=== PATIENT | male | born 1955 | race Caucasian/White ===

== ENCOUNTER 2016-12-01 08:57 | Observation (INO) | payer OTHER ==
--- NOTE | ~2016-12-01 | TH ---
Unit #: [id number] #: [id number] Patient: JAYME GUZMAN [id number] [address] [address] [id number] I MR#: [id number] NAME: JAYME GUZMAN : 1955 SEX: M STUDY DATE/TIME: 12/02/2016 UNIT: B ROOM: 551 STUDY DESCRIPTION: Attending Physician: Estela Kim M.D. Primary Care Physician: No Primary Care Physician CARDIOLOGY REPORT EXAM Exercise Cardiolite stress test, nuclear portion. PROCEDURE Using technetium 99m labeled Cardiolite, rest and stress SPECT images were obtained. Multiple SPECT images were obtained in various views including horizontal and vertical long axis and short axis views of the left ventricle. Images were obtained by gated SPECT method. The patient was administered 11.03 mCi of Cardiolite at rest. The patient was administered 35.1 mCi of Cardiolite at peak exercise. Total exercise time is 9 minutes and 31 seconds. On the stress images, there is a very small area of mild decreased isotope activity in the anteroseptal wall. The rest images also show a small area of mild decreased isotope activity anteroseptally. Comparing rest and stress images, there is no stress-induced ischemia noted. The small area of predominantly fixed defect seen anteroseptally is most likely due to soft tissue artifact. The left ventricular ejection fraction is calculated to be 57%. There is no focal wall motion abnormality seen. CONCLUSION 1. No stress-induced ischemia noted. 2. There is a small area of predominantly fixed defect seen anteroseptally of unclear significance. 3. The left ventricular ejection fraction is calculated to be 57%. 4. There is no focal wall motion abnormality seen. 5. Normal exercise Cardiolite stress test. Dictated by... Lois Palacios TD: 12/02/2016 12:14 JOB #: [id number] Unit #: [id number] #: [id number] Patient: JAYME GUZMAN CARDIOLOGY REPORT Page 1 of 1 X Estela Kim MD <ELECTRONICALLY SIGNED> 12/24/16 1524 CARDIOLOGY REPORT
--- NOTE | ~2016-12-01 | EKG ---
PATIENT: JAYME GUZMAN UNIT #: [id number] Ventricular Rate: 96 BPM Atrial Rate: 96 BPM P-R Interval: 146 ms QRS Duration: 78 ms Q-T Interval: 338 ms QTC Calculation(Bezet): 427 ms P [place]: 44 degrees Calculated R [place]: -33 degrees Calculated T [place]: 5 degrees Diagnosis Line: Normal sinus rhythm Diagnosis Line: Left axis deviation Diagnosis Line: Abnormal ECG Diagnosis Line: No previous ECGs available Diagnosis Line: Confirmed by JO ISAAC MD ([id number]) on Diagnosis Line: 12/02/2016 11:10:32 PM INTERPRETING MD: PAL
--- NOTE | ~2016-12-01 | CR72 ---
[facility] A Service [facility] RADIOLOGY TEXT RESULTS PATIENT: JAYME GUZMAN LOCATION: [place] [address] : [birth year] UNIT #: [id number] AGE: [address]: Estela Kim MD SEX: M ORDER DR: [id number] [place] [id number] E MR#: [id number] Acc #: [id number] NAME: JAYME GUZMAN : 1955 SEX: M STUDY DATE/TIME: 12/01/2016 09:46 UNIT: SED ROOM: STUDY DESCRIPTION: CR Chest Single View Portable Attending Physician: Jossy Conteh M.D. Ordering Physician: Jossy Conteh M.D. Primary Care Physician: No Primary Care Physician MEDICAL IMAGING REPORT This report is preliminary unless electronic signature is present. EXAM Chest portable 12/01/2016 09:46 hours HISTORY A 61-year-old man with history of hypertension complaining of anterior chest pain today. COMPARISON None. FINDINGS Portable upright chest demonstrates normal heart size. The aorta is mildly tortuous. The lungs are clear of acute densities. Calcified granulomata are present. There is no effusion. IMPRESSION 1. Heart size within normal limits with minimally tortuous aorta. 2. Benign calcified granulomatous changes in the lungs. No acute pulmonary or pleural findings. Dictated by... Nohemi De Leon M.D. THIS IS AN ELECTRONICALLY VERIFIED REPORT Nohemi De Leon M.D. at 12/01/2016 2:28 PM YVAN/ted TD: 12/01/2016 12:02 JOB #: [id number] [facility] A Service [facility] RADIOLOGY TEXT RESULTS PATIENT: JAYME GUZMAN LOCATION: [facility] [id number] : 53 UNIT #: [id number] AGE: [address]: Estela Kim MD SEX: M ORDER DR: MEDICAL IMAGING REPORT Page 1 of 1
--- NOTE | ~2016-12-01 | A ---
[facility] Nutrition Therapy DATE: 12/02/16 Patient: JAYME GUZMAN Physician: PRASHANT Address: [address] Room/Bed: [address] [place] [address], Zip: [place] [address] Admit Date: 12/01/16 Date of : 53 Height: Weight: 194 88.1 NUTRITIONAL ASSESSMENT: REASON: CONSULT RE: DIET EDUCATION PT IS 61 Y.O. MALE ADMITTED FOR CHEST PAIN PM[facility] PER CHART: DM, HTN, HLD, TOBACCO ABUSE Anthropometrics: 5'11", WT: 194# (88 KG), BMI: 27.1 Labs: GLU: 141 Meds: LIPITOR I/O & Bowel function: 1020/350 Skin Integrity: NO KNOWN SKIN ISSUES Assessment: CHART REVIEWED AND EVENTS NOTED. PT SEEN FOR DIET EDUCATION CONSULT. RD PROVIDED WRITTEN AND VERBAL CC+HH DIET EDUCATION. RD EMPHASIZED IMPORTANCE OF MAINTAINING A CONSISTENT MEAL SCHEDULE + LIMITING SALT INTAKE AND READING FOOD LABELS. RD PROVIDED LIST OF FOODS TO AVOID AND FOODS TO EAT MORE OFTEN. PT REPORTS CONSUMING 2 MEALS DAILY, WILLING TO ADD ANOTHER MEAL WELL CONSUME HEALTHIER BREAKFAST. PT AND DEMONSTRATED UNDERSTANDING OF THE TOPIC. RD ANSWERED QUESTIONS APPROPRIATELY. RD TO REMAIN AVAILABLE UPON REQUEST. Intervention: 1. CC+ HH DIET 2. DIET EDUCATION Recommendations: 1. ENCOURAGE COMPLIANCE OF CURRENT DIET ORDER 2. RE-CONSULT RD IF FURTHER DIET EDUCATION REQUESTED 3. CONSIDER OBTAINING HgB A1c TO BETTER ASSESS DM MANAGEMENT RD WILL F/U PER PROTOCOL Respectfully, Olga Lidia Martinez RD, LD Food [facility] Nutrition[facility] Nutrition Therapy DATE: 12/02/16 Patient: JAYME THOMAS Physician: PRASHANT Address: [address] Room/Bed: [address] [place] [address], Zip: [place] [id number] Admit Date: 12/01/16 Date of : 53 Height: Weight: 194 88.1 [facility] cc: client file
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
--- NOTE | ~2016-12-01 | EKG ---
PATIENT: JAYME GUZMAN UNIT #: [id number] Ventricular Rate: 52 BPM Atrial Rate: 52 BPM P-R Interval: 166 ms QRS Duration: 80 ms Q-T Interval: 416 ms QTC Calculation(Bezet): 386 ms P Muir: 40 degrees Calculated R Muir: -22 degrees Calculated T Muir: 22 degrees Diagnosis Line: Sinus bradycardia Diagnosis Line: Low voltage QRS Diagnosis Line: Borderline ECG Diagnosis Line: No previous ECGs available Diagnosis Line: Confirmed by BINH CARLOS MD ([id number]) on 12/02/2016 Diagnosis Line: 7:20:25 PM INTERPRETING MD: TERRANCE MIGUEL
--- NOTE | ~2016-12-01 | ST ---
Unit #: [id number] #: [id number] Patient: JAYME GUZMAN [id number] [facility]. [address] [place], [place] [address] [id number] I MR#: [id number] NAME: JAYME GUZMAN : 1955 SEX: M STUDY DATE/TIME: 12/02/2016 UNIT: C5B ROOM: 551 STUDY DESCRIPTION: Cadriac stress test. Attending Physician: Estela Kim M.D. Primary Care Physician: No Primary Care Physician CARDIOLOGY REPORT EXAM Cardiac stress test. INDICATION FOR STUDY Chest pain. PROCEDURE Baseline EKG shows sinus bradycardia, rate of 54 beats per minute, low voltage, with poor R wave progression. The patient exercised on the treadmill according to Cristopher protocol for a total of 9 minute 31 seconds, achieving 10.90 METS, with a resting heart rate of 51 beats per minute and a maximum heart rate of 139 beats per minute. This represents 87% of the maximum predicted heart rate. There appears to be some mild ST segment depression in the inferolateral leads, approximately 0.5-1 mm. The patient did complain of some chest pressure anterior, which was similar in nature to the pressure that brought him to the emergency room from home. This was at peak exertion. He also complained of shortness of breath which increased at peak exertion. There was no ectopy. The test was stopped secondary to increasing shortness of breath, dyspnea on exertion and mild anterior chest pressure. 1. EKG with 0.5-[address] segment depression inferolateral leads. 2. During the test the patient did complain of anterior chest pressure at peak exertion, as well as shortness of breath which increased at maximum intensity and fatigue. His symptoms resolved in recovery period. 3. There were no sustained arrhythmias or isolated arrhythmias. 4. The patient had a normal blood pressure response to exercise. 5. Please correlate with nuclear images. Dictated by... Sugey Macedo A.P.R.N. for Unit #: [id number] #: [id number] Patient: JAYME GUZMAN Estela Kim M.D. LMW/gz TD: 12/02/2016 10:47 JOB #: [id number] CARDIOLOGY REPORT Page 1 of 1 X Sugey Macedo APRN CARDIOLOGY REPORT
--- NOTE | ~2016-12-01 | EKG ---
PATIENT: JAYME GUZMAN UNIT #: [id number] Ventricular Rate: 55 BPM Atrial Rate: 55 BPM P-R Interval: 152 ms QRS Duration: 80 ms Q-T Interval: 380 ms QTC Calculation(Bezet): 363 ms P [place]ac: 21 degrees Calculated R Capac: 30 degrees Calculated T Capac: 4 degrees Diagnosis Line: Sinus bradycardia Diagnosis Line: Otherwise normal ECG Diagnosis Line: When compared with ECG of 02-DEC-2016 05:31, Diagnosis Line: (unconfirmed) Diagnosis Line: No significant change was found Diagnosis Line: Confirmed by BINH CARLOS MD ([id number]) on 12/02/2016 Diagnosis Line: 7:27:21 PM INTERPRETING MD: TERRANCE MIGUEL
--- NOTE | ~2016-12-01 | CT16 ---
[facility] A Service of [facility] RADIOLOGY TEXT RESULTS PATIENT: JAYME GUZMAN LOCATION: [facility] 551- : 53 UNIT #: [id number] AGE: [address]: Estela Kim MD SEX: M ORDER DR: [id number] [address] [address] [id number] I MR#: [id number] Acc #: [id number] NAME: JAYME GUZMAN : 1955 SEX: M STUDY DATE/TIME: 12/01/2016 12:19 UNIT: SEDOF ROOM: [id number] STUDY DESCRIPTION: CT Angio Chest for PE Attending Physician: Estela Kim M.D. Ordering Physician: Jossy Conteh M.D. Primary Care Physician: No Primary Care Physician MEDICAL IMAGING REPORT This report is preliminary unless electronic signature is present. EXAM CT angiogram of the chest for pulmonary embolism 12/01/2016 1219 hours HISTORY 61-year-old man complaining of intermittent chest pain for 2 months with new onset chest pain today at 0820 hours. History of chewing tobacco usage, hypertension, diabetes. COMPARISON Chest film 12/01/2016. No prior CT scan TECHNIQUE Dynamic helical CT angiographic images were obtained from the thoracic inlet through the adrenal glands. 3-D sagittal and coronal reconstructions were performed. Contrast was Isovue-370 80 mL IV. Total exam DLP 681 mGy-cm. This CT exam was performed with one or more of the following radiation dose reduction techniques: automatic control, adjustment of mA and/or kV according to patient size, and iterative reconstruction. FINDINGS Images through the thoracic inlet demonstrate no thyroid mass or supraclavicular adenopathy. Images through the chest demonstrate diagnostic quality opacification of the pulmonary arteries which are normal in caliber. There are no filling defects to suggest the presence of pulmonary emboli. The aorta is also moderately well opacified and normal in caliber. There is no dissection. Cardiac chambers, pericardium and esophagus appear normal. The lungs are well expanded. There is some linear density dependently at both bases consistent with atelectasis or scar. There is no evidence of pneumonia, edema or mass. There are no effusions. [facility]. [facility] A Service of [facility] & [facility] RADIOLOGY TEXT RESULTS PATIENT: JAYME GUZMAN LOCATION: C5B 551-01 : 53 UNIT #: [id number] AGE: [address]: Estela Kim MD SEX: M ORDER DR: Limited views through the upper abdomen are negative. IMPRESSION 1. No evidence of pulmonary embolism. The aorta is normal. 2. Mild emphysematous changes with linear bibasilar densities consistent with atelectasis or scar. There is no pleural effusion or pneumothorax. Dictated by... Nohemi De Leon M.D. THIS IS AN ELECTRONICALLY VERIFIED REPORT Nohemi De Leon M.D. at 12/01/2016 5:27 PM YVAN/yancy TD: 12/01/2016 16:17 JOB #: [id number] MEDICAL IMAGING REPORT Page 1 of 1
[2016-12-01] MEDS ORDERED: JANUMET 50/500 PO (09:09)
[2016-12-01] MEDS ORDERED: ASPIRIN PO (09:10)
[2016-12-01] MEDS ORDERED: CRESTOR PO (09:10)
[2016-12-01] MEDS ORDERED: FELODIPINE PO (09:10)
[2016-12-01] MEDS ORDERED: LISINOPRIL PO (09:10)
[2016-12-01 09:34] LABS: POC - CKMB 1.2 ng/mL (0.0-7.9); POC - MYOGLOBIN 44.1 ng/mL (0.0-169.0)
[2016-12-01 09:35] LABS: POC - TROPONIN <0.05 ng/mL (<=0.05)
[2016-12-01 09:49] LABS: BASOPHIL# 0.1 X10e3 (0-0.3); BASOPHIL% 0.9 % (0-2.5); EOSINOPHIL# 0.5 X10e3 (0-0.7); EOSINOPHIL% 5.2 % (0.0-7.0); HEMATOCRIT 47.8 % (38.0-50.0); HEMOGLOBIN 16.2 gm/dL (13.0-16.0); LYMPHOCYTE# 1.3 X10e3 (1.0-3.5); LYMPHOCYTE% 13.8 % (17.0-45.0); MEAN CELL VOLUME 84.8 FL (83-96); MEAN CORPUSCULAR HEMOGLOBIN 28.7 PG (28-34); MEAN CORPUSCULAR HGB CONC 33.9 g/dL (30-36); MEAN PLATELET VOLUME 9.2 FL (6.5-11.5); MONOCYTE# 0.8 X10e3 (0-1.0); MONOCYTE% 8.9 % (3.0-12.0); NEUTROPHIL# 6.7 X10e3 (1.5-7.1); NEUTROPHIL% 71.2 % (40-75); PLATELET COUNT 227 X10e3 (140-420); RED BLOOD COUNT 5.64 X10e (3.90-5.60); WHITE BLOOD COUNT 9.4 X10e3 (4.0-10.5)
[2016-12-01 09:54] LABS: DIFF IND NO
[2016-12-01 10:02] LABS: PROTHROMBIN TIME (PATIENT) 11.8 SECONDS (9.5-12.4)
[2016-12-01 10:09] LABS: ALBUMIN SERUM 4.5 g/dL (3.5-5.0); BILIRUBIN, DIRECT 0.1 mg/dL (0.0-0.2); BILIRUBIN,INDIRECT 0.9 mg/dL (0.0-0.9); BUN/CREATININE RATIO 16.66; CALCIUM SERUM 8.8 mg/dL (8.4-10.2); CREATININE SERUM 1.2 mg/dL (0.6-1.4); GLOM FILT RATE Estimated 64.4 mL/min (>60); POTASSIUM 3.8 mmol/L (3.5-5.1); PROTEIN TOTAL SERUM 7.4 g/dL (6.0-8.3)
[2016-12-01 10:10] LABS: PARTIAL THROMBOPLASTIN TIME 28.5 SECONDS (25.6-38.1)
[2016-12-01 11:18] LABS: POC - CKMB <1.0 ng/mL (0.0-7.9); POC - MYOGLOBIN 38.7 ng/mL (0.0-169.0); POC - TROPONIN <0.05 ng/mL (<=0.05)
[2016-12-02 06:26] LABS: BUN/CREATININE RATIO 16.36; CALCIUM SERUM 9.3 mg/dL (8.4-10.2); CREATININE SERUM 1.1 mg/dL (0.6-1.4); GLOM FILT RATE Estimated 71.6 mL/min (>60); MAGNESIUM 1.9 mg/dL (1.6-3.0); POTASSIUM 4.3 mmol/L (3.5-5.1)
[2016-12-02 12:48] LABS: HEMATOCRIT 46.9 % (38.0-50.0); HEMOGLOBIN 15.8 gm/dL (13.0-16.0); MEAN CELL VOLUME 84.2 FL (83-96); MEAN CORPUSCULAR HEMOGLOBIN 28.4 PG (28-34); MEAN CORPUSCULAR HGB CONC 33.7 g/dL (30-36); MEAN PLATELET VOLUME 8.3 FL (6.5-11.5); RED BLOOD COUNT 5.57 X10e (3.90-5.60); RED CELL DISTRIBUTION WIDTH 13.4 % (11.0-15.5); WHITE BLOOD COUNT 8.8 X10e3 (4.0-10.5)
[2016-12-02 13:01] LABS: INR 1.1; PROTHROMBIN TIME (PATIENT) 11.4 SECONDS (10.0-11.7)
[2016-12-02 14:22] LABS: BUN/CREATININE RATIO 13.84; CALCIUM SERUM 9.5 mg/dL (8.4-10.2); CREATININE SERUM 1.3 mg/dL (0.6-1.4); GLOM FILT RATE Estimated 58.5 mL/min (>60)
[2016-12-02] MEDS ORDERED: METOPROLOL TAR25 MG PO (20:51)
[2016-12-02] MEDS ORDERED: CRESTOR10 MG PO (20:52)
== END 2016-12-02 21:27 | DRG 313 ==
LOC: SED 08:57 → C5B 15:54 → SED 15:54 → SEDOF 15:54 → C5B 16:58 → SEDOF 16:58 → C5B 17:14 → SEDOF 17:14 → C5B 12-02 21:27
PROVIDERS: Emergency Medicine; Internal Medicine Cardiovascular Disease
DX: R07.89 Other chest pain (principal); E11.9 Type 2 diabetes mellitus without complications; I10 Essential (primary) hypertension; E78.5 Hyperlipidemia, unspecified; F17.291 Nicotine dependence, other tobacco product, in remission; Z82.49 Family history of ischemic heart disease and other diseases of the circulatory system; Z79.82 Long term (current) use of aspirin; Z79.899 Other long term (current) drug therapy; Z98.890 Other specified postprocedural states
CPT/HCPCS: 36415; 71010; 71275; 78452; 80048; 80061; 80076; 82553; 82947; 83735; 83874; 83880; 84443; 84484; 85025; 85027; 85379; 85610; 85730; 93005; 93017; 93306; 96372; 99152; 99153; 99285; A9500; C1769; C1887; C1894; G0378; J1644; J1650; J2250; J3010; Q9967